=== PATIENT | female | born 1930 | race Caucasian/White ===

== ENCOUNTER 2018-06-26 11:56 | Day surgery (SDC) | payer MEDICARE, BC ==
[2018-06-26] MEDS ORDERED: KETOROLAC/HOME 0.5% SOL RIGHTEYE ONE ×3 (12:26→12:35)
[2018-06-26] MEDS: TROPICAMIDE 1% OPHTH SOL ONE ×3 (12:26→12:35)
[2018-06-26] MEDS: PHENYLEPHRINE HCL 10% OPHTHAL SOL ONE ×3 (12:26→12:34)
[2018-06-26] MEDS: CYCLOPENTOLATE 1% SOL ONE ×3 (12:26→12:35)
[2018-06-26] MEDS ORDERED: MOXIFLOXACIN-HOME SOL RIGHTEYE ONE ×2 (12:26→12:30)
[2018-06-26] MEDS ORDERED: MIDAZOLAM 2 MG/2 ML SOL ONE (12:34)
[2018-06-26] MEDS ORDERED: FENTANYL 100MCG/2ML SOL ONE (12:34)
[2018-06-26] MEDS: TETRACAINE HCL 0.5 % 1 DROP SOL ONE ×2 (12:35→13:15)
[2018-06-26] MEDS ORDERED: LIDOCAINE HCL 2% MPF 10 ML SOL ONE (13:09)
[2018-06-26] MEDS ORDERED: BSS W/ 0.5 MG P.F. EPI 1 BOTTLE ONE (13:09)
[2018-06-26] MEDS ORDERED: POVIDONE IODINE 5% SOL ONE (13:09)
[2018-06-26] MEDS ORDERED: ACETAZOLAMIDE 250 MG PO ONE (13:12)
[2018-06-26 13:59] VITALS: BP 155/60; PULSE 68; RESP 20; TEMP 97.6; O2SAT 96
== END 2018-06-26 14:16 | disposition home or self-care (01) | DRG 125 ==
LOC: SURG 11:56
PROVIDERS: ATTEND Ophthalmology
DX: H25.89 Other age-related cataract (principal)
CPT/HCPCS: J2250; J3010; A9270-GY

== ENCOUNTER 2018-07-10 10:26 | Day surgery (SDC) | payer MEDICARE, BC ==
[2018-07-10] MEDS ORDERED: TETRACAINE HCL 0.5 % 1 DROP SOL ONE (10:36)
[2018-07-10] MEDS ORDERED: KETOROLAC 0.5% OPTH 60 DROP SOL ONE (10:36)
[2018-07-10] MEDS: CYCLOPENTOLATE 1% SOL ONE ×3 (10:50→10:59)
[2018-07-10] MEDS: PHENYLEPHRINE HCL 10% OPHTHAL SOL ONE ×3 (10:50→10:59)
[2018-07-10] MEDS ORDERED: MOXIFLOXACIN-HOME SOL LEFTEYE ONE ×2 (10:51→10:55)
[2018-07-10] MEDS: TROPICAMIDE 1% OPHTH SOL ONE ×3 (10:51→11:00)
[2018-07-10] MEDS ORDERED: KETOROLAC/HOME 0.5% SOL LEFTEYE ONE ×3 (10:51→11:00)
[2018-07-10] MEDS ORDERED: BSS W/ 0.5 MG P.F. EPI 1 BOTTLE ONE (10:56)
[2018-07-10] MEDS ORDERED: LIDOCAINE HCL 2% MPF 10 ML SOL ONE ×2 (10:56→11:00)
[2018-07-10] MEDS ORDERED: POVIDONE IODINE 5% SOL ONE (10:56)
[2018-07-10 10:58] VITALS: RESP 16; O2SAT 98
[2018-07-10] MEDS ORDERED: MIDAZOLAM 2 MG/2 ML SOL ONE (11:30)
[2018-07-10] MEDS ORDERED: TETRACAINE HCL 0.5 % 1 DROP SOL LEFTEYE ONE (12:12)
[2018-07-10] MEDS ORDERED: POVIDONE IODINE 5% SOL LEFTEYE ONE (12:13)
[2018-07-10] MEDS ORDERED: BSS IR ONE (12:45)
[2018-07-10] MEDS ORDERED: ACETAZOLAMIDE 250 MG PO ONE (13:03)
[2018-07-10 13:07] VITALS: BP 177/70; PULSE 65; TEMP 97.6
== END 2018-07-10 13:25 | disposition home or self-care (01) | DRG 125 ==
LOC: SURG 10:26
PROVIDERS: ATTEND Ophthalmology
DX: H25.89 Other age-related cataract (principal)
CPT/HCPCS: J2250; A9270-GY